=== PATIENT | male | born 1990 | race Caucasian/White ===

== ENCOUNTER 2023-03-14 19:25 | Emergency (ER) | payer OTHER, SELFPAY ==
[2023-03-14 19:26] VITALS: BP 120/108; PULSE 103; RESP 15; TEMP 37.6; O2SAT 96; BMI 21.2
--- NOTE | 2023-03-14 19:39 | CT_ITS ---
INDICATION: abd pain, fever EXAMINATION: CT ABDOMEN AND PELVIS WITH CONTRAST - CT Abdomen And Pelvis W/ Contrast Injection TECHNIQUE: Helically acquired images were obtained of the abdomen and pelvis following IV contrast. A radiation dose optimization technique was used for this scan. IV Contrast dosage and agent: 100 mL of Isovue-370. Oral contrast: None. COMPARISON: No prior comparison study available. FINDINGS: LOWER CHEST: Lung bases are clear. No cardiomegaly or pericardial effusion. Distal esophagus is normal in appearance. LIVER: Homogeneous. No focal mass. GALLBLADDER AND BILIARY TREE: No calcified gallstones. No gallbladder distension or wall edema. No intra- or extrahepatic biliary ductal dilation. PANCREAS: No focal cystic or solid mass. SPLEEN: Normal size without focal cystic or solid mass. ADRENAL GLANDS: No nodules. KIDNEYS, URETERS and BLADDER: Normal renal size and position. No mass. No hydronephrosis. Bladder is unremarkable. PERITONEUM: No ascites or free air. No other fluid collection. BOWEL: Nonvisualized appendix. No inflammatory changes to suggest appendicitis. Questionable mild mural edema descending colon suspicious for possible colitis. No adjacent mesenteric inflammatory changes. LYMPH NODES: Mildly prominent mesenteric lymph nodes in the pericecal region, the largest of which measures 8 mm in short axis this finding is nonspecific but could be associated with mesenteritis or possible regional inflammatory changes. VESSELS: Aorta is non-dilated. REPRODUCTIVE ORGANS: Within normal limits ABDOMINAL WALL: No discrete abdominal or pelvic wall hernia. BONES: No lytic or blastic abnormality. No fracture. Loss of normal femoral head Loss of the normal and associated mild sclerosis of the anterior femoral head neck junction bilaterally and small os acromiale in the right are nonspecific findings potentially associated with impingement. Correlate clinically. Endplate irregularity distal thoracic spine representing endplate herniation pits. Limbus vertebral body morphology superior endplate of L1. CT/Abdomen/Pelvis W IV Cont ONLY IMPRESSION: Questionable mild mural edema ascending colon is a nonspecific finding potentially associated with colitis. Careful clinical correlation is recommended. Otherwise, no evidence of intra-abdominal pathology. Nonspecific mild prominence of the pericecal mesenteric lymph nodes, no more than 8 mm in short axis. Findings potentially associated with hip impingement. Correlate clinically. Electronically Signed: Aman Lindsay DO at 20:22 EDT ,
--- NOTE | 2023-03-14 19:39 | EDS_ITS ---
HPI History of Present Illness Chief Complaint: General Illness Detail of Chief Complaint: Diarrhea, abdominal pain, fever Informant: patient and spouse/S.O. Onset/Context/Timing Onset: Days Context: Gradual Onset Narrative Narrative: Patient present secondary to fever, nausea, and diarrhea. He states he became ill the evening of March 11. He reports generalized body aches and headache along with abdominal cramping. He reports diarrhea with nausea but no vomiting. He took his temperature at home this evening and it read 104. He did take ibuprofen prior to arrival. PFSH PFSH Medical History no medical history no medical history Allergy/AdvReac Type Severity Reaction Status Date / Time amoxicillin AdvReac Mild Diarrhea Verified 03/14/23 19:29 Surgical History no surgical history no surgical history Social History Smoking Status: Never smoker ROS ROS ED Constitutional Constitutional ED: Reports fever(s); Denies chills Eyes Eyes: Denies change in vision or discharge from eye(s) ENT ENT ED: Denies discharge from eye(s), rhinorrhea or sore throat Cardiovascular Cardiovascular: Denies chest pain or palpitations Respiratory/Chest Respiratory/Chest: Denies cough or dyspnea Gastrointestinal Gastrointestinal: Reports abdominal pain, diarrhea and nausea; Denies vomiting Genitourinary Genitourinary ED: Denies difficulty urinating or dysuria Musculoskeletal Musculoskeletal: Reports myalgias; Denies back pain Integumentary Denies Abrasions or rash Neurologic Neurologic: Reports headache(s); Denies weakness Psychiatric Psychiatric: Denies anxiety or depression Allergic/Immunologic Allergic/Immunologic ED: Denies lip swelling or urticaria EXAM Physical Exam Const Vital Signs: 03/14/23 19:26 03/14/23 19:55 03/14/23 20:30 Temperature 99.6 F H 99.6 F H 99 F Temperature Source Temporal Oral Oral Pulse Rate 103 H 98 97 Respiratory Rate 15 18 16 Blood Pressure 120/108 H 120/108 H 113/57 L Blood Pressure Mean 112 112 75 Pulse Ox 96 Oxygen Delivery Method Room Air Room Air Positive well nourished and well developed General Appearance ED: well developed HEENT Reports moist mucous membranes Eyes PERRL and EOMs intact bilaterally Neck no lymphadenopathy Chest Wall inspection of chest normal and palpation of chest normal Resp normal respiratory effort and clear to auscultation bilaterally Cardio regular rate and regular rhythm GI GI Narrative: Abdomen soft with mild diffuse tenderness palpation. No guarding or rebound. Hypoactive bowel sounds. Extremity normal to inspection Neuro oriented x3 and no sensory deficits noted Motor Exam: strength 5/5 throughout Psych mental status grossly normal Skin no rashes or lesions noted MDM MDM MDM Narrative Medical decision making narrative: Patient is given a liter of IV fluids. Labwork obtained to evaluate for leukocytosis, anemia, and electrolyte derangement. Urinalysis obtained to evaluate for infection/hematuria. CT scan of the abdomen pelvis with IV contrast obtained to evaluate for possible appendicitis. History & Record Review Discussion w/independent historian: Patient and Significant other Lab Data Attestation: I reviewed the patient's lab results. Labs: Laboratory Results - last 24 hr 03/14/23 03/14/23 19:45 20:33 WBC 8.4 RBC 5.29 Hgb 15.2 Hct 43.8 MCV 82.8 MCH 28.7 MCHC 34.7 RDW Std Deviation 34.6 L RDW Coeff of Ofe 11.5 L Plt Count 160 MPV 9.1 Immature Gran % (Auto) 0.400 Neut % (Auto) 81.0 H Lymph % (Auto) 9.4 L Fisher % (Auto) 8.9 Eos % (Auto) 0.1 Baso % (Auto) 0.2 Absolute Neuts (auto) 6.8 Absolute Lymphs (auto) 0.79 L Nucleated RBC % 0 Sodium 133 L Potassium 3.8 Chloride 102 Carbon Dioxide 24.0 Anion Gap 7 BUN 17 Creatinine 1.07 Estim Creat Clear Calc 93.11 Est GFR (MDRD) Af Amer 102 Est GFR (MDRD) Non-Af 84 BUN/Creatinine Ratio 15.9 Glucose 131 H Calcium 8.9 Total Bilirubin 0.80 Direct Bilirubin 0.24 AST 41 H ALT 54 Alkaline Phosphatase 77 Total Protein 7.6 Albumin 3.8 Globulin 3.8 Urine Color Yellow Urine Clarity Clear Urine pH 6.5 Ur Specific Avant 1.010 Urine Protein 30 H Urine Glucose (UA) Normal Urine Ketones Negative Urine Occult Blood 10 H Urine Nitrite Negative Urine Bilirubin Negative Urine Urobilinogen Normal Ur Leukocyte Esterase Negative Urine RBC 0 SEEN Urine WBC 0 SEEN Ur Squamous Epith Cells 0 SEEN Urine Bacteria 0 SEEN Urine Mucus 0 SEEN Radiography Diagnostic Testing: Clinical Impression(s) from Imaging Studies Abdomen/Pelvis CT 03/14/23 19:39 IMPRESSION: Questionable mild mural edema ascending colon is a nonspecific finding potentially associated with colitis. Careful clinical correlation is recommended. Otherwise, no evidence of intra-abdominal pathology. Nonspecific mild prominence of the pericecal mesenteric lymph nodes, no more than 8 mm in short axis. Findings potentially associated with hip impingement. Correlate clinically. Electronically Signed: Aman Lindsay, DO at 20:22 EDT , Treatment and Re-Evaluation :: CBC was normal white count 8.4. Slight left shift is noted with 81% neutrophils. Chemistry studies reveal slightly low sodium at 133. Renal function is normal. LFTs are unremarkable. Urinalysis reveals 30 of protein but no evidence of acute infection and no ketones. CT scan of the abdomen pelvis with IV contrast reveals questionable mild mural edema of the ascending colon which is nonspecific. This may represent colitis. There is mild prominence of the pericecal mesenteric lymph nodes as well. Appendix is not visualized, however no significant inflammatory changes noted in the right lower quadrant to suggest appendicitis. On repeat evaluation patient states he is feeling improved with hydration. Test results are discussed with patient and at bedside. He will continue supportive care. At this time I think his symptoms are viral in nature and he will not benefit from an antibiotic. Discharge Plan Triage Chief Complaint: General Illness ED Provider: Mame Carter Dx/Rx/DC Orders Clinical Impression: Viral syndrome Instructions: ED Viral Syndrome (Adult) Primary Care Provider: Care Physician,No Primary Referrals: Mireya Schuler MD [Med Staff - [employer]] - As Needed Care Physician,No Primary [Primary Care Provider] - Disposition Disposition: Home, Self Care
[2023-03-14 19:54] LABS: Absolute Lymphocyte Count 0.79 X10^3/uL (0.83-4.51); Absolute Neutrophil Count 6.8 X10^3/uL (2.0-7.7); Basophil# 0.02 X10^3/uL; Basophil% 0.2 % (0-1); Eosinophil# 0.01 X10^3/uL; Eosinophils% 0.1 % (0-5); Hematocrit 43.8 % (40-54); Hemoglobin 15.2 g/dL (13.0-16.5); Lymphocyte # 0.79 X10^3/ul (0.83-4.51); Lymphocyte % 9.4 % (19-41); Mean Corp Hgb Conc 34.7 g/dL (32-36); Mean Corpuscular Hgb 28.7 pg (27.0-32.0); Mean Corpuscular Volume 82.8 fL (80-94); Mean Platelet Vol. 9.1 fl (6.2-12.0); Monocyte# 0.75 X10^3/uL; Monocyte% 8.9 % (0-10); NRBC Flagged by Analyzer 0 % (0-5); Neutrophil # 6.78 X10^3/uL (2.7-7.7); Platelet Count 160 K/mm3 (150-450); RBC Distribution Width CV 11.5 % (11.6-14.6); RBC Distribution Width SD 34.6 fl (35.1-43.9); Red Blood Count 5.29 M/mm3 (4.6-6.2); White Blood Count 8.4 K/mm3 (4.4-11.0)
[2023-03-14 19:55] VITALS: BP 120/108; PULSE 98; RESP 18; TEMP 37.6
[2023-03-14 20:19] LABS: AST(SGOT) 41 U/L (15-37); Alanine Aminotransfer ALT/SGPT 54 U/L (16-61); Albumin, Serum 3.8 g/dL (3.2-5.0); Alkaline Phosphatase 77 U/L (45-117); Anion Gap 7 (5-15); BUN 17 mg/dL (7-18); BUN/Creat Ratio 15.9 RATIO (10-20); Bilirubin, Direct 0.24 mg/dL (0.00-0.30); Calcium,Total 8.9 mg/dL (8.5-10.1); Chloride 102 mmol/L (98-107); Creatinine, Serum 1.07 mg/dL (0.70-1.30); EST Glomerular Filtration Rate 84 mL/min (>60); Est Glom Filt Rate - Afr Amer 102 mL/min (>60); Estimated Creatinine Clearance 93.11 ml/min; Globulin 3.8 g/dL (2.2-4.2); Glucose 131 mg/dL (74-106); Potassium 3.8 mmol/L (3.5-5.1); Protein, Total 7.6 g/dL (6.4-8.2); Sodium Level 133 mmol/L (136-145)
[2023-03-14 20:30] VITALS: BP 113/57; PULSE 97; RESP 16; TEMP 37.2
[2023-03-14 20:41] LABS: Bacteria 0 SEEN /hpf (None Seen); Mucous, Urine 0 SEEN /hpf (<or=2+); Red Blood Cells-Urine 0 SEEN /hpf (0-5); Squamous Epithelial Cells - UA 0 SEEN /hpf (0-5); White Blood Cells 0 SEEN /hpf (0-5)
[2023-03-14 20:43] LABS: Color, Urine Yellow (Yellow); Glucose, Dipstick Normal (Normal); Ketone-Dipstick Negative (Negative); Leukocyte Esterase-Dipstick Negative /ul (Negative); Nitrite-Dipstick Negative (Negative); Occult Blood-Urine 10 /ul (Negative); Protein-Dipstick 30 mg/dl (Negative); Urine Bilirubin Dipstick Negative (Negative); Urine Clarity Clear (Clear); Urine Urobilinogen Normal (Normal); Urine pH 6.5 (5.0 - 8.0)
[2023-03-14] MEDS: 0.9% Normal Saline 1,000 ML 1000 ML IV (20:50)
== END 2023-03-14 21:42 | disposition home or self-care (01) ==
PROVIDERS: Emergency Provider Emergency Medicine; Visit Provider Emergency Medicine
DX: B34.9 Viral infection, unspecified (principal)
CPT/HCPCS: 74177; 80048; 80076; 81001; 85025; 96360; 99283; J7030; Q9967; A4216